=== PATIENT | female | born 1965 | race Caucasian/White ===

== ENCOUNTER → 2018-04-13 | Outpatient (CLI) | payer OTHER ==
[~2018-04-13] MED LIST: DIA5 PO; HYDR2TAB74 PO; IBUP800T37 PO; KET10 PO; LAMO100T56 PO; LOSA-57 PO; LOSA100T75 PO; OLM20 PO; TRAM-420 PO; TRIA-20 PO; [UNRECOGNIZED DRUG - REMARK]
--- NOTE | 2018-04-13 15:51 | RADIOLOGY IMAGING REPORT ---
FACILITY: [facility] [place] PATIENT NAME: IVETT SEBASTIAN : [id number] MR: [id number] V: [id number] EXAM DATE: [id number] ORDERING PHYSICIAN: AUTUMN JONES TECHNOLOGIST: Stephie Berry PROCEDURE:BILATERAL DIGITAL SCREENING MAMMOGRAM WITH CAD ASSISTED INTERPRETATION & 3D TOMOSYNTHESIS COMPARISON:Prior mammograms 09/30/2016, 10/23/2013. INDICATIONS:Asymmetric TISSUE DENSITY: Scattered fibroglandular densities. FINDINGS: Views obtained: Bilateral full field CC & MLO 2D & 3D tomography. There is no mammographic finding suspicious for malignancy, and no significant change compared to prior mammograms. DIAGNOSTIC CATEGORY 1--NEGATIVE. RECOMMENDATIONS: ROUTINE ANNUAL MAMMOGRAM AND CLINICAL EVALUATION. Dictated by: Lida Sousa M.D. on 04/13/2018 at 15:38 Transcribed by: DIANA on 04/13/2018 at 15:49 Approved by: Lida Sousa M.D. on 04/13/2018 at 15:49 [facility]
== END ==
LOC: MAMO 15:13
PROVIDERS: ATTEND Nurse Practitioner Family
DX: Z12.31 Encounter for screening mammogram for malignant neoplasm of breast (principal)
CPT/HCPCS: 77063; 77067